=== PATIENT | female | born 1965 | race Caucasian/White ===

== ENCOUNTER 2017-04-30 14:13 | Inpatient (IN) | payer BC ==
[~2017-04-30] VITALS: Ht 165.1 cm; Wt 61.6 kg
[2017-04-30 14:16] VITALS: BP 111/74; PULSE 67; RESP 15; TEMP 97.4; O2SAT 100
[2017-04-30] MEDS ORDERED: DIAZ10 PO (14:35)
[2017-04-30] MEDS ORDERED: LEXA5TAB PO (14:35)
[2017-04-30] MEDS ORDERED: PROG100C PO (14:35)
[2017-04-30] MEDS ORDERED: REME30TA PO (14:35)
[2017-04-30 14:47] LABS: AUTOMATED NEUTROPHIL # 2.4 TH/MM3 (1.8-7.7); BASOPHIL # 0.2 TH/MM3 (0-0.2); BASOPHIL % 3.2 % (0.0-2.0); EOSINOPHIL # 0.1 TH/MM3 (0-0.4); EOSINOPHIL % 1.9 % (0.0-4.0); HEMATOCRIT 38.5 % (35.0-46.0); HEMO FLAGS DIFF FINAL; LYMPHOCYTE # 1.8 TH/MM3 (1.0-4.8); MEAN CELL VOLUME 92.7 FL (80.0-100.0); MEAN CORPUSCULAR HEMOGLOBIN 31.4 PG (27.0-34.0); MEAN CORPUSCULAR HGB CONC 33.9 % (32.0-36.0); MONO % 6.5 % (0.0-8.0); NEUT % 50.4 % (16.0-70.0); PLATELET COUNT 245 TH/MM3 (150-450); RED BLOOD COUNT 4.15 MIL/MM3 (4.00-5.30); WHITE BLOOD COUNT 4.8 TH/MM3 (4.0-11.0)
[2017-04-30 14:54] LABS: BARBITURATES, URINE NEG (NEG)
[2017-04-30 14:55] LABS: AMPHETAMINE, URINE NEG (NEG); COCAINE, URINE NEG (NEG)
--- NOTE | 2017-04-30 15:12 | PD ---
HPI Chief Complaint: Suicide Ideation/Attempt Time Seen by Provider: 14:23 Travel History International Travel<30 days: No Contact w/Intl Traveler<30days: No Traveled to known affect area: No History of Present Illness HPI 51-year-old female states that she has been trying to coordinate her medications as an outpatient and they are not able to titrate them up quickly and she has gotten to the point where she just wants to give up. She states that she doesn't have a set plan but she is afraid to be at home by herself. She states that one psychiatrist diagnosed her with bipolar disorder and had her on Geodon and multiple other medications and she is afraid those made her worse. She states she is off those now and she is on Lexapro but is still having issues. She denies any other concurrent complaints other than feeling sad and depressed. Her partner is with her and brought her in due to concerns of this. PFSH Past Medical History Anxiety: Yes Depression: Yes Diminished Hearing: No Influenza Vaccination: No ?: Not Past Surgical History Tonsillectomy: Yes Social History Alcohol Use: Yes Tobacco Use: No Substance Use: No Allergies-Medications (Allergen,Severity, Reaction): Coded Allergies: No Known Allergies (Unverified , 04/30/17) Reported Meds & Prescriptions Reported Meds & Active Scripts Active Reported Progesterone Micronized 100 Mg Cap 0 PO DAILY Valium (Diazepam) 10 Mg Tab 20 Mg PO BID PRN Remeron (Mirtazapine) 30 Mg Tab 30 Mg PO HS Lexapro (Escitalopram Oxalate) 5 Mg Tab 5 Mg PO DAILY Review of Systems Except as stated in HPI: all other systems reviewed are Neg Physical Exam Narrative GENERAL: Well-nourished, well-developed patient. Intermittently tearful SKIN: Warm and dry. HEAD: Normocephalic and atraumatic. EYES: No injection or drainage. ENT: No nasal drainage noted. NECK: Supple, trachea midline. CARDIOVASCULAR: Regular rate and rhythm RESPIRATORY: Breath sounds equal bilaterally at apices. No accessory muscle use. GASTROINTESTINAL: Abdomen soft, non-tender, nondistended. NEUROLOGICAL: Awake and alert. Motor and sensory grossly within normal limits. Normal speech. Data Data Last Documented VS Vital Signs Date Time Temp Pulse Resp B/P Pulse Ox O2 Delivery O2 Flow Rate FiO2 04/30/17 14:16 97.4 67 15 111/74 100 Orders Complete Blood Count With Diff (04/30/17 14:27) Comprehensive Metabolic Panel (04/30/17 14:27) Psych Screen (04/30/17 14:27) Drug Screen, Random Urine (04/30/17 14:27) Alcohol (Ethanol) (04/30/17 14:27) Labs Laboratory Tests Test 04/30/17 04/30/17 14:35 16:00 White Blood Count 4.8 TH/MM3 Red Blood Count 4.15 MIL/MM3 Hemoglobin 13.1 GM/DL Hematocrit 38.5 % Mean Corpuscular Volume 92.7 FL Mean Corpuscular Hemoglobin 31.4 PG Mean Corpuscular Hemoglobin 33.9 % Concent Red Cell Distribution Width 12.0 % Platelet Count 245 TH/MM3 Mean Platelet Volume 8.1 FL Neutrophils (%) (Auto) 50.4 % Lymphocytes (%) (Auto) 38.0 % Monocytes (%) (Auto) 6.5 % Eosinophils (%) (Auto) 1.9 % Basophils (%) (Auto) 3.2 % Neutrophils # (Auto) 2.4 TH/MM3 Lymphocytes # (Auto) 1.8 TH/MM3 Monocytes # (Auto) 0.3 TH/MM3 Eosinophils # (Auto) 0.1 TH/MM3 Basophils # (Auto) 0.2 TH/MM3 CBC Comment DIFF FINAL Differential Comment Urine Opiates Screen NEG Urine Barbiturates Screen NEG Urine Amphetamines Screen NEG Urine Benzodiazepines Screen POS Urine Cocaine Screen NEG Urine Cannabinoids Screen NEG Sodium Level 141 MEQ/L Potassium Level 3.7 MEQ/L Chloride Level 107 MEQ/L Carbon Dioxide Level 27.4 MEQ/L Anion Gap 7 MEQ/L Blood Urea Nitrogen 13 MG/DL Creatinine 0.89 MG/DL Estimat Glomerular Filtration 66 ML/MIN Rate Random Glucose 83 MG/DL Calcium Level 9.0 MG/DL Total Bilirubin 0.4 MG/DL Aspartate Amino Transf 15 U/L (AST/SGOT) Alanine Aminotransferase 19 U/L (ALT/SGPT) Alkaline Phosphatase 55 U/L Total Protein 6.8 GM/DL Albumin 3.8 GM/DL Ethyl Alcohol Level LESS THAN 3 MG/DL MDM Medical Decision Making Medical Screen Exam Complete: Yes Emergency Medical Condition: Yes Medical Record Reviewed: Yes (past history confirmed) Interpretation(s) CBC & BMP Diagram 04/30/17 14:35 04/30/17 16:00 Differential Diagnosis Depression, needing medication titration, electrolyte abnormality Narrative Course Will check blood work and Mental health screening discussed with the patient. Psychiatric screen ordered. Agrees to voluntarily stay labs wnl, medically cleared, patient updated and agrees to transport Diagnosis Primary Impression: Depressed mood Disposition: 70 TRANSFER TO OTHER FACILITY ([facility]) Condition: Stable Danae Ibarra MD Apr 30, 2017 15:12
[2017-04-30 16:17] LABS: CHLORIDE 107 MEQ/L (98-107); POTASSIUM 3.7 MEQ/L (3.5-5.1); SODIUM (NA) 141 MEQ/L (136-145)
[2017-04-30 16:21] LABS: ANION GAP 7 MEQ/L (5-15); BICARBONATE 27.4 MEQ/L (21.0-32.0); BLOOD UREA NITROGEN 13 MG/DL (7-18)
[2017-04-30 16:24] LABS: ALT (GPT) 19 U/L (10-53); AST (GOT) 15 U/L (15-37); GLOMERULAR FILTRATION RATE 66 ML/MIN (>89)
[2017-04-30 16:26] LABS: TOTAL BILIRUBIN ADULT 0.4 MG/DL (0.2-1.0)
[2017-04-30 16:27] LABS: ALKALINE PHOSPHATASE 55 U/L (45-117)
[2017-04-30 18:19] VITALS: BP 120/73; PULSE 78; RESP 18; O2SAT 98
[2017-04-30] MEDS ORDERED: diphenhydrAMINE HCL 50 MG CAP - HS PRN PO (23:15)
[2017-04-30] MEDS ORDERED: MAGNESIUM HYDROXIDE SUSP 30 ML CUP PO PRN (23:15)
[2017-04-30] MEDS ORDERED: BENZTROPINE MESYLATE 1 MG TAB PO PRN (23:15)
[2017-04-30] MEDS ORDERED: diphenhydrAMINE HCL 50 MG CAP PO PRN (23:15)
[2017-04-30] MEDS ORDERED: hydrOXYzine HCL 50 MG TAB PO PRN (23:15)
[2017-04-30] MEDS ORDERED: ALUMINUM/MAGNESIUM/SIMETH 30 ML CUP PO PRN (23:15)
[2017-04-30] MEDS ORDERED: diphenhydrAMINE HCL 50 MG/ML VIAL - HS PRN IM (23:15)
[2017-04-30] MEDS ORDERED: diphenhydrAMINE HCL 50 MG/ML VIAL IM PRN (23:15)
[2017-04-30] MEDS ORDERED: traZODone HCL 50 MG TAB PO PRN (23:15)
[2017-04-30] MEDS ORDERED: BENZTROPINE MESYLATE 2 MG/2 ML VIAL IM PRN (23:15)
[2017-04-30] MEDS ORDERED: MIRTAZAPINE 15 MG TAB PO SCH (23:30)
[2017-04-30] MEDS ORDERED: ESCITALOPRAM OXALATE 10 MG TAB PO SCH (23:30)
[2017-04-30] MEDS ORDERED: DIAZEPAM 10 MG TAB PO PRN (23:30)
[2017-05-01 01:07] VITALS: BP 126/64; PULSE 60; RESP 18; TEMP 97.4; O2SAT 97
[2017-05-01 05:56] VITALS: BP 92/54; PULSE 103; RESP 17; TEMP 98.2; O2SAT 98
[2017-05-01] MEDS ORDERED: NICOTINE 21 MG/24 HR PATCH T-DERMAL SCH (09:00)
[2017-05-01 09:49] LABS: AUTOMATED NEUTROPHIL # 1.5 TH/MM3 (1.8-7.7); EOSINOPHIL # 0.1 TH/MM3 (0-0.4); EOSINOPHIL % 3.8 % (0.0-4.0); HEMATOCRIT 40.9 % (35.0-46.0); HEMO FLAGS DIFF FINAL; LYMPH % 48.8 % (9.0-44.0); LYMPHOCYTE # 1.8 TH/MM3 (1.0-4.8); MEAN CELL VOLUME 94.1 FL (80.0-100.0); MEAN CORPUSCULAR HEMOGLOBIN 31.6 PG (27.0-34.0); MEAN CORPUSCULAR HGB CONC 33.6 % (32.0-36.0); MONO % 6.9 % (0.0-8.0); NEUT % 39.5 % (16.0-70.0); PLATELET COUNT 229 TH/MM3 (150-450); RED BLOOD COUNT 4.35 MIL/MM3 (4.00-5.30); RED CELL DISTRIBUTION WIDTH 12.6 % (11.6-17.2); WHITE BLOOD COUNT 3.8 TH/MM3 (4.0-11.0)
[2017-05-01] MEDS ORDERED: DIAZEPAM 10 MG TAB PO PRN (10:00)
[2017-05-01 10:15] LABS: ANION GAP 8 MEQ/L (5-15); BICARBONATE 28.4 MEQ/L (21.0-32.0); BLOOD UREA NITROGEN 12 MG/DL (7-18); CHLORIDE 108 MEQ/L (98-107); GLOMERULAR FILTRATION RATE 64 ML/MIN (>89); POTASSIUM 3.8 MEQ/L (3.5-5.1); SODIUM (NA) 144 MEQ/L (136-145)
[2017-05-01 10:24] LABS: HDL CHOLESTEROL 70.4 MG/DL (40.0-60.0); LDL CHOLESTEROL 145 MG/DL (0-99)
--- NOTE | 2017-05-01 11:54 | HHI.HP ---
Provisional Diagnosis Admission Date Apr 30, 2017 at 23:12 [place]. 1. Major depressive disorder, recurrent versus extended single episode, moderate 2. Mixed anxiety disorder [place]. Deferred [place]. GAF is 45 presently Certification of Person's Competence To Provide Express and Informed Consent I have personally examined Danielle Gamble , a person being served at [facility] on, May 01, 2017 11:38. Express and informed consent means consent voluntarily given in writing, by a competent person, after sufficient explanation and disclosure of the subject matter involved to enable the person to make a knowing and willful decision without any element of force, fraud, deceit, duress, or other form of constraint or coercion. This person is 18 years of age or older, is not now known to be incompetent to consent to treatment with a guardian advocate, and does not have a health care surrogate or proxy currently making medical treatment decisions. I have found this person to be one of the following: [x] Competent to provide express and informed consent, as defined above, for voluntary admission to this facility and is competent to provide express and informed consent for treatment. He/she has the consistent capacity to make well reasoned, willful, and knowing decisions concerning his or her medical or mental health treatment. The person fully and consistently understands the purpose of the admission for examination/placement and is fully capable of personally exercising all rights assured [place] Incompetent to provide express and informed consent to voluntary admission, and this is incompetent to provide express and informed consent to treatment. The person must be transferred to involuntary status and a petition for a guardian advocate filed with the Circuit Court. [] Refusing to provide express and informed consent to voluntary admission but is competent to provide express and informed consent for treatment. The person must be discharged or transferred to involuntary status. Form shall be completed within 24 hours of a person's arrival at the receiving facility and filed in the clinical record of each person: 1. Admitted on a voluntary basis 2. Permitted to provide express and informed consent to his/her own treatment 3. Allowed to transfer from involuntary to voluntary status 4. Prior to permitting a person to consent to his or her own treatment after having been previously found incompetent to consent to treatment. History of Present Illness Capacity: Has Capacity HPI Ms. Gamble is a 51-year-old female with a reported history of depression and anxiety who presents on a voluntary basis to the emergency department for psychiatric symptomatology. Reviewing the electronic medical record, it appears that this is patient's first visit to [facility]. Patient seen and examined with nurse. Chart reviewed. Case discussed with nursing staff. On my examination today, the patient reports that she was in her usual state of health until about 14 months ago when she developed onset of depression and associated anxiety. She says that she sought out the assistance of a psychiatrist who, in her estimation, misdiagnosed her with bipolar illness and prescribed a course of mood stabilizers. She says that treatment with these agents worsened her condition to the degree that she became significantly functionally impaired. She says that she subsequently sought out the help of another provider who started her on Remeron, which helped with her issues with sleep but did not provide much symptomatic benefit with respect to mood. She has subsequently sought out a nurse practitioner at [facility] who has started her on a low dose of Lexapro and has reportedly recommended that she come into the hospital for more rapid titration of this medication to bring the dose within the range of doses likely to be therapeutic. Presently, the patient reports that she feels depressed. She endorses low motivation and poor sleep. She endorses low energy. She endorses concentration difficulty. She says that she feels more irritable since the onset of her illness. She denies any suicidal ideation, intent or plan saying that she would never hurt herself on account of her mother and her family, but she does admit to some passive thoughts of and says "I don't want to be in this situation anymore." She endorses a high level of chiefly generalized anxiety and says that she lives in fear of being functionally impaired as a consequence of her mental illness. No hypomanic or manic symptoms now, nor can I elicit any clear history of hypomania or jude in the past. She denies ever having experienced audiovisual hallucinations and I can elicit no delusional material. The remainder of the psychiatric ROS is negative. Past psychiatric history: The patient reports a history of anxiety and depression of about 14 months duration. She is currently followed by a nurse practitioner, Ana Maria Vaz, at [facility]. She denies a history of psychiatric admissions or suicide attempts. She does report a previous trial of Prozac that was efficacious for her symptoms but was for some reason discontinued and when resumed no longer had efficacy. Family history: The patient denies a family history suicide. She reports that both her nephew and brother have anxiety issues and responded well to Lexapro. She endorses a history of alcoholism in both sides of her family. Chemical dependency history: The patient denies any abuse of drugs or alcohol. She does drink beer socially. Social history: The patient reports that she lives alone. She is single. She has no children. Her pet dog did pass away one month ago. She says that she has a large [place] of friends. 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 She has a bachelor's degree in history. She denies any history. Denies any legal history. Denies any history of abuse physical, verbal or sexual abuse. Denies any access to guns or firearms. She is a Worship. Review of Systems Except as stated in HPI: all other systems reviewed are Neg Past Psych History Psychological trauma history See above Violence risk - others (6 mos) Lower imminent risk. Denies homicidal ideation. No known history of violence. No evidence of mental illness process that would confer risk for violence. Violence risk - self (6 mos) Low-moderate risk. The patient presently denies suicidal ideation and says that she would never hurt herself on account of her mother and family members. She denies a history of suicide attempts. She denies a family history of suicide. She is fairly depressed and does admit to entertaining passive thoughts of . She denies any access to guns or firearms. She does have life-affirming roman catholic beliefs. Substance Abuse History Drugs/Alcohol past 12 months See above. E-FORCSE report reviewed. Patient most recently received Valium 5mg #90 for 30 days on 04/10/[address] Urbano. Previous Rx are from Dr. Zuluaga. Past Family Social History Coded Allergies: No Known Allergies (Unverified , 04/30/17) Past Medical History Includes a history of postmenopausal state on hormone replacement therapy. Also includes a history of asthma. Reported Medications Progesterone Micronized 100 Mg Cap PO DAILY #30 CAP Ref 0 04/30/17 Diazepam (Valium)10 Mg Tab20 Mg PO BID PRN (ANXIETY) Ref 0 04/30/17 Mirtazapine (Remeron)30 Mg Tab30 Mg PO HS #30 TAB Ref 0 04/30/17 Escitalopram (Lexapro)5 Mg Tab5 Mg PO DAILY #30 TAB Ref 0 04/30/17 Current Medications Medications (Trade) Dose Ordered Sig/Anneliese Route Start Time Stop Time Status Last Admin (Atarax) 50 mg Q6H PRN PO 04/30/17 23:15 05/01/17 09:29 (Cogentin) 1 mg Q12H PRN PO 04/30/17 23:15 (Cogentin Inj) 1 mg Q12H PRN IM 04/30/17 23:15 (Benadryl) 50 mg HS PRN PO 04/30/17 23:15 (Tylenol) 650 mg Q4H PRN PO 04/30/17 23:15 (Milk Of Magnesia Liq) 30 ml DAILY PRN PO 04/30/17 23:15 (Mag-Al Plus Susp Liq) 30 ml Q6H PRN PO 04/30/17 23:15 (Habitrol 21 Mg Patch.24 Hr) 1 patch DAILY T-DERMAL 05/01/17 09:00 Miscellaneous Information 1 HS T-DERMAL 05/01/17 21:00 (Lexapro) 5 mg HS PO 05/01/17 21:00 (Remeron) 30 mg HS PO 05/01/17 21:00 (Valium) 5 mg TID PRN PO 05/01/17 10:00 Family History See above Social History See above Patient's Strengths (min. 2) Intelligent. Verbally fluent. Physical Exam Physical examination was completed by the ED provider. On my examination today , the patient appears to be in no acute physical distress. She appears well- nourished and well-developed. No abnormal motor movements noted. Laboratories and vital signs reviewed: Vital Signs Vital Signs Date Time Temp Pulse Resp B/P Pulse Ox O2 Delivery O2 Flow Rate FiO2 05/01/17 05:56 98.2 103 17 92/54 98 04/30/17 18:19 Room Air Lab Results Item Value Date Time White Blood Count 3.8 TH/MM3 L 05/01/17 0847 Hemoglobin 13.7 GM/DL 05/01/17 0847 Platelet Count 229 TH/MM3 05/01/17 0847 Sodium Level 144 MEQ/L 05/01/17 0847 Potassium Level 3.8 MEQ/L 05/01/17 0847 Chloride Level 108 MEQ/L H 05/01/17 0847 Carbon Dioxide Level 28.4 MEQ/L 05/01/17 0847 Blood Urea Nitrogen 12 MG/DL 05/01/17 0847 Creatinine 0.92 MG/DL 05/01/17 0847 Aspartate Amino Transf (AST/SGOT) 15 U/L 04/30/17 1600 Alanine Aminotransferase (ALT/SGPT) 19 U/L 04/30/17 1600 Alkaline Phosphatase 55 U/L 04/30/17 1600 Thyroid Stimulating Hormone 3rd Gen 4.050 uIU/ML H 05/01/17 0847 Free Thyroxine 1.00 NG/DL 05/01/17 0847 Urine Benzodiazepines Screen POS H 04/30/17 1435 Ethyl Alcohol Level LESS THAN 3 MG/DL 04/30/17 1600 Mental Status Examination Patient is casually dressed. She is well groomed. She is awake and alert and oriented 3. No evidence of delirium. No abnormal motor movements noted. Speech is within normal limits for rate, tone and volume. Language and fund of knowledge seem at least average. Focus and concentration somewhat scattered. Memory grossly intact on clinical exam. Mood is depressed and anxious and affect is consistent with stated mood. Thought process circumstantial. No loosening of associations. No delusional material elicited. Denies audiovisual hallucinations. Denies suicidal or homicidal ideation. Insight and judgment are fair. Assessment & Plan Problem List: (1) Major depressive disorder, recurrent, moderate ICD Code: F33.1 (2) Other mixed anxiety disorders ICD Code: F41.3 Assessment & Plan This is a 51-year-old female with psychiatric history as detailed above who is presently voluntarily admitted to the inpatient psychiatric unit. The patient describes an approximately 14 month history of depressive illness with associated anxiety, and her current depressive symptomatology is of moderate severity. She denies suicidal ideation but admits to entertaining passive thoughts of . She has at least a moderate degree of mixed anxiety , chiefly generalized in nature. It is unclear from the history of the patient is experiencing recurrence of major depression or if this is a continuation of the initial episode; I will provide the diagnosis of recurrent major depression for now. Patient reports that she has been working with her new outpatient provider to lift her mood and that Lexapro was added a few weeks ago. Patient would like to try to titrate this agent to bring the dose and to arrange likely to be therapeutic and was reportedly counseled to do so on an inpatient basis as the medication adjustment could be more rapidly. I discussed with the patient extensively the risks and benefits as well as alternative options for treatment of her current symptomatology and have emphasized that although we may adjust the dose of her antidepressant, the therapeutic effect was still take 4-6 weeks. I will plan to admit the patient to the inpatient psychiatric unit to make medication adjustments and for observation. Admit inpatient. Voluntary status. Titrate Lexapro to 10 mg with plans to titrate further as tolerated. Continue Remeron at bedtime as ordered. Continue Valium 5 mg 3 times a day as needed for severe anxiety as supported by E-FORCSE. Patient may use hydroxyzine for less severe anxiety and also has Cogentin available as needed for EPS and Benadryl as needed for sleep. Vitals every shift. Counselor to see and obtain collateral information. Encourage participation in groups and unit activities. Disposition planning. Estimated length of stay: 3-5 days. Discharge Planning Pending med adjustments. Request Surrog/Guard Advoc?: No Sushant Coppola MD May 01, 2017 11:54
[2017-05-01 17:42] LABS: HEMOGLOBIN A1a 1.4 %; HEMOGLOBIN A1b 0.8 %; HEMOGLOBIN Ao 85.6 %; HEMOGLOBIN F 1.2 %; HEMOGLOBIN LA1C 1.9 %; HEMOGLOBIN P3 3.4 %
[2017-05-01 18:21] VITALS: BP 114/60; PULSE 73; RESP 18; TEMP 97.8; O2SAT 98
[2017-05-01] MEDS: ESCITALOPRAM OXALATE 10 MG TAB PO SCH (20:28)
[2017-05-01] MEDS ORDERED: ESCITALOPRAM OXALATE 10 MG TAB PO SCH (21:00)
[2017-05-01] MEDS ORDERED: REMOVE OLD NICOTINE PATCH T-DERMAL SCH (21:00)
[2017-05-01] MEDS: MIRTAZAPINE 15 MG TAB PO SCH (21:22)
[2017-05-02] MEDS: ACETAMINOPHEN 325 MG TAB PO PRN (02:41)
[2017-05-02 05:40] VITALS: BP 137/66; PULSE 77; RESP 16; TEMP 97.4; O2SAT 99
[2017-05-02] MEDS ORDERED: ASPIRIN 325 MG/CAFFEINE 40 MG/BUTALBITAL 50 MG CAP PO ONE (10:45)
--- NOTE | 2017-05-02 11:36 | HHI.PYPN ---
Subjective Remarks Patient seen and examined with nurse. Chart reviewed. Case discussed with nursing staff. Per nursing staff, patient developed typical migraine overnight. On my examination today, patient is quite distressed by ongoing migraine. She says she normally takes Excedrin and if this doesn't help takes Imitrex. We discuss risks and benefits of Imitrex in combination with serotonergic antidepressants vis--vis the risk of serotonin syndrome. Patient prefers not to use Imitrex at this time. Remains quite fretful and anxious. Some catastrophizing noted. Requires frequent reassurance. Sleep poor secondary to headache. Denies side effects from medications. No other physical complaints. Patient's progesterone preparation has been brought in from home. Review of Systems Except as stated in HPI: all other systems reviewed are Neg Objective Alert: Yes Louise: Person (O x 3) Mood: Anxious Affect: Blunted Memory Intact: Comment (intact on clinical exam) Hallucinations: Other (No AVH) Delusions: No Delusion Type: Other (No delusions elicited) Suicidal: Ideation (Denies SI) Homicidal: Ideation (Denies HI) Insight/Judgment Fair Remarks No abnormal motor movements noted. Thought process linear. Grooming and hygiene good. Labs Labs reviewed. Vitals/IOs Vital Signs Date Time Temp Pulse Resp B/P Pulse Ox O2 Delivery O2 Flow Rate FiO2 05/02/17 05:40 97.4 77 16 137/66 99 04/30/17 18:19 Room Air Assessment & Plan Problem List: (1) Major depressive disorder, recurrent, moderate ICD Code: F33.1 (2) Other mixed anxiety disorders ICD Code: F41.3 Assessment & Plan Pharmacy does not stock Excedrin. I have ordered Fiorinal x 1 instead. Resume progesterone preparation. Continue Lexapro as ordered. We discuss titration options for this agent. Continue other medications and care as ordered. Justification for Cont. Inpt. Complicating condition. Dispo planning. Discharge Planning Anticipate discharge tomorrow, Saturday. Request HC Surrog/Guard Advoc?: No Sushant Coppola MD May 02, 2017 11:36
[2017-05-02 18:00] VITALS: BP 108/57; PULSE 65; RESP 18; TEMP 97.7; O2SAT 95
[2017-05-02] MEDS ORDERED: PROGESTERONE 200 MG PO SCH (21:00)
[2017-05-02] MEDS: MIRTAZAPINE 15 MG TAB PO SCH (21:45)
[2017-05-02] MEDS: ESCITALOPRAM OXALATE 10 MG TAB PO SCH (21:45)
[2017-05-03 05:43] VITALS: BP 85/52; PULSE 62; RESP 16; TEMP 98.5; O2SAT 96
[2017-05-03] MEDS: ACETAMINOPHEN 325 MG TAB PO PRN (06:29)
[2017-05-03 09:50] VITALS: BP 127/74; PULSE 83; RESP 16; TEMP 98.6
[2017-05-03] MEDS ORDERED: ESCI10TA PO (12:04)
[2017-05-03] MEDS ORDERED: DIAZ10 PO (12:04)
[2017-05-03] MEDS ORDERED: MIRTA15 PO (12:04)
--- NOTE | 2017-05-03 12:05 | HHI.DS ---
Psychiatry Discharge Summary Inpatient Psychiatric care?: Yes Advance Directive: No Reason Not Provided: Due to Patient Condition Mental Health AdvanceDirective: No Health Care Proxy: No Admission Admission Date Apr 30, 2017 at 23:12 Admission Diagnosis: (1) Major depressive disorder, recurrent, moderate ICD Code: F33.1 (2) Other mixed anxiety disorders ICD Code: F41.3 Brief History Ms. Gamble is a 51-year-old female with a reported history of depression and anxiety who presents on a voluntary basis to the emergency department for psychiatric symptomatology. Reviewing the electronic medical record, it appears that this is patient's first visit to [facility]. Patient seen and examined with nurse. Chart reviewed. Case discussed with nursing staff. On my examination today, the patient reports that she was in her usual state of health until about 14 months ago when she developed onset of depression and associated anxiety. She says that she sought out the assistance of a psychiatrist who, in her estimation, misdiagnosed her with bipolar illness and prescribed a course of mood stabilizers. She says that treatment with these agents worsened her condition to the degree that she became significantly functionally impaired. She says that she subsequently sought out the help of another provider who started her on Remeron, which helped with her issues with sleep but did not provide much symptomatic benefit with respect to mood. She has subsequently sought out a nurse practitioner at [facility] who has started her on a low dose of Lexapro and has reportedly recommended that she come into the hospital for more rapid titration of this medication to bring the dose within the range of doses likely to be therapeutic. Presently, the patient reports that she feels depressed. She endorses low motivation and poor sleep. She endorses low energy. She endorses concentration difficulty. She says that she feels more irritable since the onset of her illness. She denies any suicidal ideation, intent or plan saying that she would never hurt herself on account of her mother and her family, but she does admit to some passive thoughts of and says "I don't want to be in this situation anymore." She endorses a high level of chiefly generalized anxiety and says that she lives in fear of being functionally impaired as a consequence of her mental illness. No hypomanic or manic symptoms now, nor can I elicit any clear history of hypomania or jude in the past. She denies ever having experienced audiovisual hallucinations and I can elicit no delusional material. The remainder of the psychiatric ROS is negative. Past psychiatric history: The patient reports a history of anxiety and depression of about 14 months duration. She is currently followed by a nurse practitioner, Ana Maria Vaz, at [facility]. She denies a history of psychiatric admissions or suicide attempts. She does report a previous trial of Prozac that was efficacious for her symptoms but was for some reason discontinued and when resumed no longer had efficacy. Family history: The patient denies a family history suicide. She reports that both her nephew and brother have anxiety issues and responded well to Lexapro. She endorses a history of alcoholism in both sides of her family. Chemical dependency history: The patient denies any abuse of drugs or alcohol. She does drink beer socially. Social history: The patient reports that she lives alone. She is single. She has no children. Her pet dog did pass away one month ago. She says that she has a large [place] of friends. 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 She has a bachelor's degree in history. She denies any history. Denies any legal history. Denies any history of abuse physical, verbal or sexual abuse. Denies any access to guns or firearms. She is a Muslim. Tobacco Use In Past 30 Days: No Tobacco Past 30 Days Alcohol Use: 2-4 Times Per Month Hospital Course Patient was admitted to a locked, inpatient psychiatric unit. Appropriate precautions were in place throughout patient's hospital stay. Patient was seen and examined daily on the unit by psychiatry and also visited by counselor. Psychotropic medications were adjusted. Patient tolerated medication changes well without side effects. There is no evidence of any suicidality or homicidality on the inpatient unit. Patient remained in good behavioral control and was compliant with medications. On the day of discharge: Patient seen and examined with nurse. Chart reviewed. Case discussed with nursing staff reports there have been no behavioral issues overnight. On my examination today, the patient reports that the Fiorinal that she received yesterday helped somewhat with her migraine headache. She is requesting discharge from the inpatient psychiatric unit today. She denies any suicidal or homicidal ideation, intent or plan on direct questioning and contracts for safety. She is future oriented. Mood remains somewhat depressed and anxious, although this is less acute than when she initially came into the hospital. She is happy to have a plan going forward for adjustment of her psychotropics and is hopeful that this plan will result in good remission of symptoms. There is no evidence of psychosis at this time. She denies side effects from medications. She denies physical complaints except for a mild residual migraine headache. Weighing the acute, chronic, and protective factors and based on the available evidence, I analysis reporting developer to a reasonable degree of medical certainty that patient is at low imminent risk of harm to self or others from a mental illness as defined under the [place] act and her level of function is adequate for outpatient care. Patient has maximized benefit from this inpatient psychiatric hospital stay and will be discharged today with psychiatric follow-up as arranged by counselor. Patient is also to follow-up with primary care. I have counseled the patient regarding warning signs for need to return to the psychiatric emergency room is part of the general safety plan. I have recommended that the patient try titrating her Lexapro to 20 mg/ day in about a week, but we have discussed that if she has side effects she can taper the dose back to 10 mg or consider splitting the dose to 15 mg daily among other strategies. Results Blood Pressure 127 / 74 Vital Signs Date Time Temp Pulse Resp B/P Pulse Ox O2 Delivery O2 Flow Rate FiO2 05/03/17 09:50 98.6 83 16 127/74 05/03/17 05:43 96 04/30/17 18:19 Room Air Laboratory Tests Test 04/30/17 04/30/17 05/01/17 14:35 16:00 08:47 Basophils (%) (Auto) 3.2 % (0.0-2.0) Urine Benzodiazepines Screen POS (NEG) Estimat Glomerular Filtration 66 ML/MIN (>89) 64 ML/MIN (>89) Rate White Blood Count 3.8 TH/MM3 (4.0-11.0) Lymphocytes (%) (Auto) 48.8 % (9.0-44.0) Neutrophils # (Auto) 1.5 TH/MM3 (1.8-7.7) Chloride Level 108 MEQ/L (98-107) Random Glucose 113 MG/DL (74-106) Cholesterol Level 228 MG/DL (120-200) LDL Cholesterol 145 MG/DL (0-99) HDL Cholesterol 70.4 MG/DL (40.0-60.0) Thyroid Stimulating Hormone 4.050 uIU/ML 3rd Gen (0.358-3.740) Laboratory Results Test 05/01/17 08:47 Hemoglobin A1c 5.4 % (4.3-6.0) Triglycerides Level 62 MG/DL (42-150) Cholesterol Level 228 MG/DL (120-200) LDL Cholesterol 145 MG/DL (0-99) HDL Cholesterol 70.4 MG/DL (40.0-60.0) Summary of Procedures None done Imaging None done Pending results at discharge: No Medications # of Antipsychotic meds at D/C: 0 Approp Antipsych med options 1 - Minimum of three failed multiple trials of monotherapy. 2 - Documented plan to taper to monotherapy due to previous use of multiple meds OR cross-taper in progress at D/C. 3 - Documentation of augmentation of Clozapine. 4 - Justification other than those listed in allowable values 1-3, document here : Discharge Discharge Date: May 03, 2017 Discharge Diagnosis: (1) Major depressive disorder, recurrent, moderate Diagnosis: Principal ICD Code: F33.1 (2) Other mixed anxiety disorders Diagnosis: Secondary ICD Code: F41.3 GAF is 60. Mental Status Exam at Disch Patient is casually dressed. She is well groomed. She is awake and alert and oriented to person and hospital at least. No evidence of delirium. No motor abnormalities noted. Speech is within normal limits for rate, tone and volume. Language and fund of knowledge are at least average. Focus and concentration intact. Cook grossly intact on clinical exam. Mood remains a little bit depressed and anxious but somewhat improved versus admission. Affect fairly full and reactive. Thought process linear. No delusions elicited. Denies audiovisual hallucinations. Denies suicidal or homicidal ideation, intent or plan. Insight and judgment are fair. Pt Condition on Discharge: Stable Discharge Disposition: Discharge Home Discharge Instructions Diet Instructions: As Tolerated, No Restrictions Activities you can perform: Weight Bearing as Gerry Scheduled Appointment: As per counselor's notes New Medications: Progesterone Micronized (Progesterone Micronized) 200 Mg Cap 200 MG PO HS Order is to update med rec only. Patient has adequate supply. Health Days 0 Ref 0 CAP Diazepam (Valium) 10 Mg Tab 5 MG PO TID Order is to update med rec only. Patient has supply at home. PRN SEVERE ANXIETY Days 0 Ref 0 TAB Escitalopram (Escitalopram) 10 Mg Tab 10 MG PO DIRECTED 10mg PO qHS and titrate to 20mg PO qHS after 1 week. Mental Health Days 15 Ref 1 TAB Mirtazapine (Mirtazapine) 15 Mg Tab 30 MG PO HS Order is to update med rec only. Patient has adequate supply at home. Mental Health Days 0 Ref 0 TAB Continued Medications: Mirtazapine (Remeron) 30 Mg Tab 30 MG PO HS Depression Control #30 Ref 0 TAB Discontinued Medications: Diazepam (Valium) 10 Mg Tab 20 MG PO BID PRN ANXIETY Ref 0 TAB Escitalopram (Lexapro) 5 Mg Tab 5 MG PO DAILY #30 Ref 0 TAB Progesterone Micronized (Progesterone Micronized) 100 Mg Cap 0 PO DAILY #30 Ref 0 CAP Discharge Time <= 30 minutes Discharge/Advance Care Plan Health Problems: (1) Major depressive disorder, recurrent, moderate (2) Other mixed anxiety disorders Goals to promote your health * To prevent worsening of your condition and complications * To maintain your health at the optimal level Directions to meet your goals Take your medications as prescribed Follow your dietary instruction Follow activity as directed Keep your appointments as scheduled Take your immunizations and boosters as scheduled If your symptoms worsen call your PCP, if no PCP go to Urgent Care Center or Emergency Room For 13/05 questions related to your inpatient stay or results of tests pending at discharge, please contact Dr. Sushant Coppola at Smoking is Dangerous to Your Health. Avoid second hand smoking Sushant Coppola MD May 03, 2017 12:05
[2017-05-03] MEDS ORDERED: PROG200C PO (14:58)
== END 2017-05-03 14:45 | disposition home or self-care (01) | DRG 885 ==
LOC: PHED 14:13 → NEDA 23:12 → H260 05-01 00:14
PROVIDERS: ADMIT Psychiatry & Neurology Psychiatry; ATTEND Psychiatry & Neurology Psychiatry
DX: F33.1 Major depressive disorder, recurrent, moderate (principal); F41.3 Other mixed anxiety disorders; G43.909 Migraine, unspecified, not intractable, without status migrainosus; Z79.890 Hormone replacement therapy
CPT/HCPCS: 80048; 80053; 80061; 80307; 83036; 84439; 84443; 85025